=== PATIENT | male | born 1950 | race Caucasian/White ===

== ENCOUNTER 2017-11-08 10:16 | Emergency (ER) | payer MEDICARE ==
--- NOTE | 2017-11-08 10:33 | ER Document Report ---
ED Medical Screen (RME) - General Chief Complaint: Abdominal Distention Stated Complaint: ABDOMINAL SWELLING Notes: RAPID MEDICAL EVALUATION DISCLOSURE I have seen this patient as part of a Rapid Medical Evaluation and, if applicable, placed any initially appropriate orders. The patient will be seen and fully evaluated, including a full history and physical exam, by a provider ( in Main ED or Fast Track) when a room becomes available. 67-year-old male here with several weeks of progressively worsening abdominal distention and now twice the size of his normal abdominal girth. Over the past week he has also had some nausea and a solitary episode of vomiting. He has not had a bowel movement over the past few days but also states he takes Percocet so this may be the cause of not having a bowel movement frequently. He denies having any abdominal pain. He does have a history of umbilical hernia repair a year and a half ago however states that he is having a protuberance in the area of the repair. EXAM No abdominal TTP Mild to moderate abdominal distention Easily reducible periumbilical hernia without overlying skin changes TRAVEL OUTSIDE OF THE [place] IN LAST 30 DAYS: No - Related Data Allergies/Adverse Reactions: codeine [Codeine] Allergy (Verified 11/08/17 10:22) Sulfa (Sulfonamide Antibiotics) Allergy (Verified 11/08/17 10:22) Past Medical History - Social History Family history: CAD - Past Medical History Cardiac Medical History: Reports: Hx Hypercholesterolemia, Hx Hypertension Renal/ Medical History: Reports: Hx Kidney Stones GI Medical History: Reports: Hx Gastroesophageal Reflux Disease Musculoskeltal Medical History: Reports Hx Arthritis, Reports Hx Musculoskeletal Deformity Psychiatric Medical History: Reports: Hx Depression Past Surgical History: Reports: Hx Oral Surgery, Hx Orthopedic Surgery - foot - Immunizations Immunizations up to date: Yes Hx Diphtheria, Pertussis, Tetanus Vaccination: Yes Physical Exam - Vital signs Vitals: Temp Pulse Resp BP Pulse Ox 99.2 F 76 16 158/91 H 97 11/08/17 10:22 11/08/17 10:22 11/08/17 10:22 11/08/17 10:22 11/08/17 10:22 Course - Vital Signs Vital signs: Temp Pulse Resp BP Pulse Ox 99.2 F 76 16 158/91 H 97 11/08/17 10:22 11/08/17 10:22 11/08/17 10:22 11/08/17 10:22 11/08/17 10:22 Doctor's Discharge - Discharge Referrals: BRIAN LEMUS MD [Primary Care Provider] - Follow up as needed
[2017-11-08 11:06] LABS: ABSOLUTE BASOPHILS # (AUTO) 0.1 10^3/uL (0.0-0.2); ABSOLUTE EOSINOPHILS # (AUTO) 0.3 10^3/uL (0.0-0.6); ABSOLUTE LYMPHOCYTES (AUTO) 0.7 10^3/uL (0.5-4.7); ABSOLUTE MONOCYTES (AUTO) 0.4 10^3/uL (0.1-1.4); ABSOLUTE NEUT (AUTO) 5.6 10^3/uL (1.7-8.2); BASOPHILS % (AUTO) 1.5 % (0-2); EOSINOPHILS % (AUTO) 4.6 % (0-6); HEMATOCRIT 46.8 % (37.9-51.0); HEMOGLOBIN 15.9 g/dL (13.5-17.0); LYMPHOCYTES % (AUTO) 9.9 % (13-45); MEAN CORPUSCULAR HEMOGLOBIN 29.5 pg (27.0-33.4); MEAN CORPUSCULAR VOLUME 87 fl (80-97); MONOCYTES % (AUTO) 5.4 % (3-13); PLATELET COUNT 282 10^3/uL (150-450); RED BLOOD COUNT 5.39 10^6/uL (4.35-5.55); RED CELL DISTRIBUTION WIDTH 13.4 % (11.5-14.0); SEGMENTED NEUTROPHILS % (AUTO) 78.6 % (42-78); TOTAL CELLS COUNTED % (AUTO) 100 %; WHITE BLOOD COUNT 7.1 10^3/uL (4.0-10.5)
[2017-11-08 11:28] LABS: ALANINE AMINOTRANSFERASE 22 U/L (21-72); ALBUMIN 4.2 g/dL (3.5-5.0); ALKALINE PHOSPHATASE 83 U/L (38-126); ANION GAP 13 (5-19); ASPARTATE AMINO TRANSFERASE 17 U/L (17-59); BILIRUBIN,DIRECT 0.3 mg/dL (0.0-0.4); BILIRUBIN,TOTAL 0.5 mg/dL (0.2-1.3); BLOOD UREA NITROGEN 10 mg/dL (7-20); CALCIUM 9.6 mg/dL (8.4-10.2); CARBON DIOXIDE 27 mmol/L (22-30); CHLORIDE 104 mmol/L (98-107); GLUCOSE 114 mg/dL (75-110); LIPASE 161.8 U/L (23-300); SODIUM 143.5 mmol/L (137-145); TOTAL PROTEIN 7.3 g/dL (6.3-8.2)
--- NOTE | 2017-11-08 12:48 | RADIOLOGY REPORT (SQ) ---
EXAM DESCRIPTION: CT ABD/PELVIS WITH IV ONLY COMPLETED DATE/TIME: 11/08/2017 12:36 pm REASON FOR STUDY: abd distension, hx cancer, last BM 4d; SBO mets? COMPARISON: 02/20/2015 TECHNIQUE: CT scan of the abdomen and pelvis performed using helical scanning technique with dynamic intravenous contrast injection. No oral contrast. Images reviewed with lung, soft tissue, and bone windows. Reconstructed coronal and sagittal MPR images reviewed. Delayed images for evaluation of the urinary system also acquired. All images stored on PACS. All CT scanners at this facility use dose modulation, iterative reconstruction, and/or weight based d osing when appropriate to reduce radiation dose to as low as reasonably achievable (ALARA). [facility]: Dose Right [facility]: CareDose [facility]: Dose Right [facility]: Teradose 4D [facility]: [employer] CONTRAST TYPE AND DOSE: contrast/concentration: Isovue 370.00 mg/ml; Total Contrast Delivered: 93.0 ml; Total Saline Delivered: 71.0 ml RENAL FUNCTION: GFR > 60. RADIATION DOSE: CT Rad equipment meets quality standard of care and radiation dose reduction techniq ues were employed. CTDIvol: 13.1 - 18.0 mGy. DLP: 1542 mGy-cm.. LIMITATIONS: None. FINDINGS: LOWER CHEST: No significant findings. No nodules or infiltrates. LIVER: Normal size. No masses. No dilated ducts. SPLEEN: Normal size. No focal lesions. PANCREAS: No masses. No significant calcifications. No adjacent inflammation or peripancreatic fluid collections. Pancreatic duct not dilated. GALLBLADDER: No identified stones by CT criteria. No inflammatory changes to suggest cholecystitis. ADRENAL GLANDS: No significant masses or asymmetry. RIGHT KIDNEY AND URETER: Cyst. No significant calcifications. No hydronephrosis or hydroureter. LEFT KIDNEY AND URETER: Cysts. No significant calcifications. No hydronephrosis or hydroureter. AORTA AND VESSELS: No aneurysm. No dissection. Renal arteries, SMA, celiac without stenosis. RETROPERITONEUM: No retroperitoneal adenopathy, hemorrhage or masses. BOWEL AND PERITONEAL CAVITY: No masses or inflammatory changes. No free fluid or peritoneal masses. APPENDIX: Normal. PELVIS: No mass. No free fluid. Normal bladder. ABDOMINAL WALL: Ventral hernia. There is mildly dilated bowel within the hernia without bhavin obstru ction. BONES: No significant or acute findings. OTHER: No other significant finding. IMPRESSION: There is a ventral hernia containing mildly dilated bowel with mild partial obstruction. TECHNICAL DOCUMENTATION: JOB ID: [id number] Quality ID # [id number]: Final reports with documentation of one or more dose reduction techniques (e.g., Au tomated exposure control, adjustment of the mA and/or kV according to patient size, use of iterative reconstruction technique) 2010 [employer]- All Rights Reserved Reading location - IP/workstation name: [email or web address]
--- NOTE | 2017-11-08 13:06 | ER Document Report ---
ED GI/ - General Chief Complaint: Abdominal Distention Stated Complaint: ABDOMINAL SWELLING Time Seen by Provider: 11/08/17 12:51 Mode of Arrival: Ambulatory Information source: Patient Notes: Patient complains of abdominal distention and firmness to the upper part of his abdomen for the past 2 weeks. Patient states that he is also had mild headache for the past 2 weeks as well that resolves after taking Motrin or Tylenol over- the-counter. Patient does report some nausea. Patient states that since he has been here his abdomen has gone down and no longer feels firm. Fever, or change in appetite. Patient does report that he is recently had some constipation symptoms. Patient's last bowel movement was 3 days ago. His last bowel movement prior to that was a week prior. Patient states he typically has a bowel movement each day. Patient does take chronic narcotics. Patient was recently started on MiraLAX about 4 days ago. TRAVEL OUTSIDE OF THE [place] IN LAST 30 DAYS: No - HPI Patient complains to provider of: Other - Lucio distention, headache Onset: Other - 2 weeks Timing/Duration: Better Quality of pain: Achy Pain Level: 1 Associated symptoms: Constipation, Nausea. denies: Diarrhea, Fever, Urinary hesitancy, Urinary frequency, Urinary retention, Urinary urgency Exacerbated by: Denies Relieved by: Denies Similar symptoms previously: No Recently seen / treated by doctor: No - Related Data Allergies/Adverse Reactions: codeine [Codeine] Allergy (Verified 11/08/17 10:31) Sulfa (Sulfonamide Antibiotics) Allergy (Verified 11/08/17 10:31) Past Medical History - General Information source: Patient - Social History Smoking Status: Current Every Day Smoker Chew tobacco use (# tins/day): No Smoking Education Provided: Yes Frequency of alcohol use: None Drug Abuse: None Lives with: Spouse/Significant other Family History: Reviewed & Not Pertinent Patient has suicidal ideation: No Patient has homicidal ideation: No - Past Medical History Cardiac Medical History: Reports: Hx Hypercholesterolemia, Hx Hypertension Renal/ Medical History: Reports: Hx Kidney Stones. Denies: Hx Peritoneal Dialysis GI Medical History: Reports: Hx Gastroesophageal Reflux Disease Musculoskeletal Medical History: Reports Hx Arthritis, Reports Hx Musculoskeletal Deformity Psychiatric Medical History: Reports: Hx Depression Past Surgical History: Reports: Hx Oral Surgery, Hx Orthopedic Surgery - foot - Immunizations Immunizations up to date: Yes Hx Diphtheria, Pertussis, Tetanus Vaccination: Yes Review of Systems - Review of Systems Constitutional: No symptoms reported. denies: Fever, Recent illness EENT: No symptoms reported Cardiovascular: No symptoms reported. denies: Chest pain Respiratory: No symptoms reported. denies: Cough, Short of breath Gastrointestinal: Abdomen distended, Nausea, Constipation. denies: Abdominal pain, Vomiting, Poor appetite, Black stools Genitourinary: No symptoms reported. denies: Dysuria, Flank pain Male Genitourinary: No symptoms reported Musculoskeletal: No symptoms reported Skin: No symptoms reported Neurological/Psychological: Headaches. denies: Confusion, Weakness, Lost consciousness Physical Exam - Vital signs Vitals: Temp Pulse Resp BP Pulse Ox 99.2 F 76 16 158/91 H 97 11/08/17 10:22 11/08/17 10:22 11/08/17 10:22 11/08/17 10:22 11/08/17 10:22 - General General appearance: Appears well, Alert In distress: None - HEENT Head: Normocephalic, Atraumatic Eyes: Normal Conjunctiva: Normal Nasal: Normal Mouth/Lips: Normal Mucous membranes: Normal Neck: Normal, Supple. No: Lymphadenopathy - Respiratory Respiratory status: No respiratory distress Chest status: Nontender Breath sounds: Normal Chest palpation: Normal - Cardiovascular Rhythm: Regular Heart sounds: S1 appreciated, S2 appreciated Murmur: No - Abdominal Inspection: Obese Distension: No distension Bowel sounds: Hyperactive Tenderness: Nontender Organomegaly: Other - ventral hernia - Back Back: Normal, Nontender. No: CVA tenderness, Vertebra tenderness - Extremities General upper extremity: Normal inspection, Nontender, Normal strength General lower extremity: Normal inspection, Nontender, Normal strength - Neurological Neuro grossly intact: Yes Cognition: Normal Tiffani Coma Scale Eye Opening: Spontaneous Tiffani Coma Scale Verbal: Oriented Tiffani Coma Scale Motor: Obeys Commands Pope Coma Scale Total: 15 - Psychological Associated symptoms: Normal affect, Normal mood - Skin Skin Temperature: Warm Skin Moisture: Dry Skin Color: Normal Course - Re-evaluation Re-evalutation: 11/08/17 13:[address] Denney who agrees to evaluate patient concerns about possible bowel obstruction 11/08/17 13:57 Dr. Denney evaluated patient. Does not feel that patient is an acute surgical patient at this time. Recommend outpatient follow-up in his office to have an electively scheduled hernia repair. 11/08/17 15:27 Patient refuses to stay for enema. Patient states that he can do that at home. Patient is requesting to leave at this time. - Vital Signs Vital signs: Temp Pulse Resp BP Pulse Ox 99.2 F 76 16 151/91 H 94 11/08/17 10:22 11/08/17 10:22 11/08/17 15:19 11/08/17 15:20 11/08/17 15:20 - Laboratory Result Diagrams: 11/08/17 10:50 11/08/17 10:50 Laboratory results interpreted by me: 11/08/17 11/08/17 10:50 10:50 Seg Neutrophils % 78.6 H Lymphocytes % 9.9 L Glucose 114 H 11/08/17 14:23 Labs- Entire Visit 11/08/17 11/08/17 10:50 10:50 WBC 7.1 RBC 5.39 Hgb 15.9 Hct 46.8 MCV 87 MCH 29.5 MCHC 34.0 RDW 13.4 Plt Count 282 Seg Neutrophils % 78.6 H Lymphocytes % 9.9 L Monocytes % 5.4 Eosinophils % 4.6 Basophils % 1.5 Absolute Neutrophils 5.6 Absolute Lymphocytes 0.7 Absolute Monocytes 0.4 Absolute Eosinophils 0.3 Absolute Basophils 0.1 Sodium 143.5 Potassium 4.0 Chloride 104 Carbon Dioxide 27 Anion Gap 13 BUN 10 Creatinine 0.96 Est GFR ( Amer) > 60 Est GFR (Non-Af Amer) > 60 Glucose 114 H Calcium 9.6 Total Bilirubin 0.5 Direct Bilirubin 0.3 Neonat Total Bilirubin Not Reportable Neonat Direct Bilirubin Not Reportable Neonat Indirect Bili Not Reportable AST 17 ALT 22 Alkaline Phosphatase 83 Total Protein 7.3 Albumin 4.2 Lipase 161.8 - Diagnostic Test Radiology reviewed: Image reviewed, Reports reviewed Discharge - Discharge Clinical Impression: Constipation Qualifiers: Constipation type: unspecified constipation type Qualified Code(s): K59.00 - Constipation, unspecified Ventral hernia Qualifiers: Obstruction and gangrene presence: without obstruction or gangrene Qualified Code(s): K43.9 - Ventral hernia without obstruction or gangrene Headache Qualifiers: Headache type: unspecified Headache chronicity pattern: unspecified pattern Intractability: not intractable Qualified Code(s): R51 - Headache Condition: Stable Disposition: HOME, SELF-CARE Instructions: Acetaminophen, Constipation ([facility]), Headache ([facility]), Hernia ([facility]) Additional Instructions: Return immediately for any new or worsening symptoms Followup with your primary care provider, call tomorrow to make a followup appointment Follow-up with Dr. Denney for repair of your hernia Forms: Smoking Cessation Education Referrals: BRIAN LEMUS MD [NO LOCAL MD] - Follow up as needed ADDIS DENNEY MD [ACTIVE STAFF] - Follow up in 1 week
[2017-11-08] MEDS ORDERED: ACETAMINOPHEN 325 MG TABLET PO ONE (13:57)
[2017-11-08] MEDS ORDERED: MAGNESIUM CITRATE 296 ML BOTTLE PO ONE (14:34)
--- NOTE | 2017-11-08 15:07 | PDOC CONSULTATION ---
Consultation Consult Date: 11/08/17 Attending physician:: DEVORAH MONTEIRO Consult reason:: Rule out small bowel obstruction History of Present Illness Patient complains of: Abdominal pain History of Present Illness: CAMELIA RICHARDS is a 67 year old male Presents emergency department via ground rescue complaining of abdominal pain, decreased bowel movement frequency, nausea. Patient has a history of chronic constipation, takes narcotics for chronic back pain. He has a known umbilical hernia, previously repaired. The patient was evaluated in the emergency department where he had a CT scan of the abdomen and pelvis with IV but no oral contrast. Findings are significant for loops of small bowel in the umbilical hernia, and dilated small bowel suspicious for partial small bowel obstruction. Surgery is consulted. While in the emergency department the patient felt better. Past Medical History Cardiac Medical History: Reports: Hyperlipidema, Hypertension GI Medical History: Reports: Gastroesophageal Reflux Disease Musculoskeltal Medical History: Reports: Arthritis Psychiatric Medical History: Reports: Depression Past Surgical History Past Surgical History: History radical robotic prostatectomy [facility] 2016 with partial closure of umbilical hernia defect. Past Surgical History: Reports: Orthopedic Surgery - foot Social History Smoking Status: Current Every Day Smoker Hx Recreational Drug Use: No Hx Prescription Drug Abuse: No Family History Family History: None, Reviewed & Not Pertinent Parental Family History Reviewed: Yes Children Family History Reviewed: Yes Sibling(s) Family History Reviewed.: Yes Medication/Allergy Home Medications: Amlodipine Besylate/Benazepril [Amlodipine-Benazepril 10-20 mg] 1 cap PO DAILY 08/30/12 Atorvastatin Calcium [Lipitor 20 Mg Tablet] 20 mg PO QHS 08/30/12 Citalopram Hydrobromide [Celexa 10 mg Tablet] mg PO 08/30/12 Fexofenadine HCl [Elodia] 30 mg PO 08/30/12 Ciprofloxacin HCl [Cipro 500 mg Tablet] 500 mg PO BID #14 tablet 08/31/12 Ibuprofen 800 mg PO Q8HP PRN #30 tablet 10/12/13 Oxycodone HCl/Acetaminophen [Percocet 5-325 mg Tablet] 1 - 2 tab PO ASDIR PRN # 15 tablet 10/12/13 Oxycodone HCl/Acetaminophen [Percocet 5-325 mg Tablet] 1 - 2 tab PO Q4H PRN #25 tablet 02/20/15 Allergies/Adverse Reactions: codeine [Codeine] Allergy (Verified 11/08/17 10:31) Sulfa (Sulfonamide Antibiotics) Allergy (Verified 11/08/17 10:31) Review of Systems Constitutional: ABSENT: chills, fever(s), headache(s), weight gain, weight loss Eyes: ABSENT: visual disturbances Ears: ABSENT: hearing changes Cardiovascular: ABSENT: chest pain, dyspnea on exertion, edema, orthropnea, palpitations Psychiatric: ABSENT: anxiety, depression, homidical ideation, suicidal ideation Physical Exam Vital Signs: Temp Pulse Resp BP Pulse Ox 99.2 F 76 16 158/91 H 97 11/08/17 10:22 11/08/17 10:22 11/08/17 10:22 11/08/17 10:22 11/08/17 10:22 Intake & Output 11/07/17 11/08/17 11/09/17 06:59 06:59 06:59 Weight 85.8 kg General appearance: PRESENT: no acute distress Head exam: PRESENT: normocephalic Mouth exam: PRESENT: dry mucosa Neck exam: PRESENT: full ROM Respiratory exam: PRESENT: rhonchi, other - Rhonchi bilaterally GI/Abdominal exam: PRESENT: other - Umbilical hernia appreciated; scars above the umbilicus consistent previous surgery. Is approximately 3-4 cm fascial defect. The hernia is reducible. The remainder the abdomen is soft not Rectal exam: PRESENT: deferred Extremities exam: PRESENT: full ROM, +1 edema, other Results Laboratory Results: 11/08/17 10:50 11/08/17 10:50 11/08/17 11/08/17 10:50 10:50 WBC 7.1 RBC 5.39 Hgb 15.9 Hct 46.8 MCV 87 MCH 29.5 MCHC 34.0 RDW 13.4 Plt Count 282 Seg Neutrophils % 78.6 H Lymphocytes % 9.9 L Monocytes % 5.4 Eosinophils % 4.6 Basophils % 1.5 Absolute Neutrophils 5.6 Absolute Lymphocytes 0.7 Absolute Monocytes 0.4 Absolute Eosinophils 0.3 Absolute Basophils 0.1 Sodium 143.5 Potassium 4.0 Chloride 104 Carbon Dioxide 27 Anion Gap 13 BUN 10 Creatinine 0.96 Est GFR ( Amer) > 60 Est GFR (Non-Af Amer) > 60 Glucose 114 H Calcium 9.6 Total Bilirubin 0.5 AST 17 ALT 22 Alkaline Phosphatase 83 Total Protein 7.3 Albumin 4.2 Lipase 161.8 Impressions: Abdomen/Pelvis CT 11/08/17 10:29 IMPRESSION: There is a ventral hernia containing mildly dilated bowel with mild partial obstruction. Assessment & Plan - Diagnosis (1) Ventral hernia Qualifiers: Obstruction and gangrene presence: without obstruction or gangrene Qualified Code(s): K43.9 - Ventral hernia without obstruction or gangrene Is this a current diagnosis for this admission?: Yes (2) Constipation Qualifiers: Constipation type: unspecified constipation type Qualified Code(s): K59.00 - Constipation, unspecified Is this a current diagnosis for this admission?: Yes (3) Smoker Is this a current diagnosis for this admission?: Yes Plan: Clinical impression: Abdominal pain likely due to relative dehydration, and chronic constipation; seriously doubt chronic ventral wall hernia responsible for patient's symptoms; CT scan limited due to absence of oral contrast. However, by my interpretation, no pathologic findings. Recommendations 1. No indication for surgical intervention; instructed patient on the importance of avoiding constipation, straining, and inspection of the umbilical hernia to ensure reduction on a regular basis. 2. Suggested hydration, cathartics to get bowels working; suggested he get on a regular bowel program. 3. I gave the patient a copy of my card told to contact me for an appointment to discuss operative repair of umbilical hernia on a scheduled basis. - Time Time Spent: 30 to 50 Minutes Smoking Cessation Education: 3 to 10 minutes Medications reviewed and adjusted accordingly: Yes Anticipated discharge: Home
[2017-11-08 15:29] VITALS: BP 151/91
== END 2017-11-08 15:32 | disposition home or self-care (01) ==
LOC: ER 10:16
DX: K59.00 Constipation, unspecified (principal); K43.9 Ventral hernia without obstruction or gangrene; R51 Headache; R11.0 Nausea; F17.200 Nicotine dependence, unspecified, uncomplicated; I10 Essential (primary) hypertension; E78.00 Pure hypercholesterolemia, unspecified; F32.9 Major depressive disorder, single episode, unspecified; M54.9 Dorsalgia, unspecified; G89.29 Other chronic pain; Z79.891 Long term (current) use of opiate analgesic; Z88.5 Allergy status to narcotic agent; Z88.2 Allergy status to sulfonamides; Z79.899 Other long term (current) drug therapy
CPT/HCPCS: 99284; 36415; 83690; 85025; 80053; 74177; J3490

== ENCOUNTER 2017-12-03 09:10 | Day surgery (SDC) | payer MEDICARE, OTHER ==
[2017-12-01 09:42] LABS: HEMATOCRIT 44.4 % (37.9-51.0); HEMOGLOBIN 14.9 g/dL (13.5-17.0); MEAN CORPUSCULAR HEMOGLOBIN 29.1 pg (27.0-33.4); MEAN CORPUSCULAR HGB CONC 33.5 g/dL (32.0-36.0); MEAN CORPUSCULAR VOLUME 87 fl (80-97); PLATELET COUNT 276 10^3/uL (150-450); RED BLOOD COUNT 5.12 10^6/uL (4.35-5.55); RED CELL DISTRIBUTION WIDTH 13.5 % (11.5-14.0); WHITE BLOOD COUNT 6.5 10^3/uL (4.0-10.5)
--- NOTE | 2017-12-01 13:18 | EKG REPORT ---
SEVERITY:- ABNORMAL ECG - SINUS RHYTHM LAD, CONSIDER LEFT ANTERIOR FASCICULAR BLOCK BORDERLINE T ABNORMALITIES, ANT-LAT LEADS : Confirmed by: Ngozi Washington MD 01-Dec-2017 13:17:57
[~2017-12-03 09:10] MED LIST: ACETAMINOPHEN 325 MG TABLET PO PRN; BUPIVACAINE HCL 0.25 % INJ/PF (2.5 MG/1 ML) 30 ML VIAL ONE; CEFAZOLIN 1 GM/D5W RTU 1 GM/50 ML RTUPB IV PRN; RINGERS SOLUTION,LACTATED 1,000 ML IV PRN
[2017-12-03] MEDS ORDERED: HYDROMORPHONE HCL INJ/PF 2 MG/ML AMPULE ONE (11:36)
[2017-12-03] MEDS ORDERED: PROPOFOL INJ 200 MG/20 ML VIAL IV ONE (11:36)
[2017-12-03] MEDS ORDERED: ACETAMINOPHEN 1,000 MG/100 ML RTUPB IV ONE (11:36)
[2017-12-03] MEDS ORDERED: FENTANYL CITRATE INJ/PF 100 MCG/2 ML AMPUL ONE (11:36)
[2017-12-03] MEDS ORDERED: ONDANSETRON HCL INJ/PF 4 MG/2 ML SDV ONE (11:36)
[2017-12-03] MEDS ORDERED: MIDAZOLAM 2 MG/2 ML INJ ONE (11:36)
[2017-12-03] MEDS ORDERED: MORPHINE SULFATE 10 MG/ML INJ IV PRN (12:47)
[2017-12-03] MEDS ORDERED: ONDANSETRON HCL INJ/PF 4 MG/2 ML SDV IV PRN (12:47)
[2017-12-03] MEDS ORDERED: FENTANYL CITRATE INJ/PF 100 MCG/2 ML AMPUL IV PRN ×3 (12:47)
[2017-12-03] MEDS ORDERED: PROMETHAZINE HCL INJ 25 MG/1 ML VIAL IV PRN (12:47)
[2017-12-03] MEDS ORDERED: MEPERIDINE HCL/PF INJ 25 MG/1 ML DISP.SYRIN IV PRN (12:47)
[2017-12-03] MEDS ORDERED: DIPHENHYDRAMINE HCL 50 MG/ML VIAL IV PRN (12:47)
[2017-12-03] MEDS ORDERED: OXYCODONE-ACETAMINOPHEN 5-325 MG TABLET PO PRN (13:13)
--- NOTE | 2017-12-03 13:13 | Discharge Summary ---
Discharge Summary (SDC) - Discharge Final Diagnosis: umbilical hernia Date of Surgery: 12/03/17 Discharge Date: 12/03/17 Condition: Stable Treatment or Instructions: [facility] [address] [place] [id number] Discharge Instructions: Laparoscopic Surgery 1. General Information: a. DO NOT DRIVE a car or operate dangerous machinery for 3-4 days. b. DO NOT consume alcohol, tranquilizers, sleeping medications or any non- prescribed medications for 24 hours unless approved by your doctor or as long as taking narcotic prescription medications. c. DO NOT make important decisions or sign any important papers for the first 24 hours after surgery. d. When discharged home the same day of surgery have a responsible person with you for the first night. 2. Activity Restrictions: 8 weeks. a. NO heavy lifting, straining abdominal muscles, bending over a lot, yard work, house work, or sports for [address] for 3-4 days. c. It is fine to go for walks, up and down steps, ride in a car. d. Elevate your head when sleeping/resting. 3. Treatment: a. You may shower 24 hours after surgery, no baths or swimming for 2 weeks. Remove band-aids or dressings before shower but leave paper strips (steri-strips ) on the skin to fall off on their own. If still on at postoperative visit they will be removed then. b. Drainage of fluid or blood is not unusual from an incision. If occurs, you can clean with peroxide and cotton ball daily and cover with dry gauze until the wound seals. c. If a lot of bleeding occurs, you can hold pressure with a gauze or cloth over the site for 10 minutes and it will usually stop. If bleeding continues you will need to call for possible evaluation in office or emergency room. 4. Medications: a. _Toradol__ may be taken for pain as needed, one tablet every 6 hours. b. You should resume all normal medications unless a change is specified by your doctors. 5. Diet: Normal diet 6. The following may occur after laparoscopic surgery: a. Shoulder or upper back ache from retained gas that should resolve in 1-2 days b. Soreness and bruising at incision sites will resolve with time. c. Scrotal swelling (labia in women) and bruising is often seen after hernia surgery. d. Sore throat e. Fatigue may last days to weeks. f. Difficulty urinating may occur and may need to come into emergency room for urinary catheter placement. 7. Notify Physician If: a. Worsening or pain not improved with pain medication b. Persistent nausea and vomiting c. Fever above 101 d. Persistent bleeding or swelling at operative site e. Unable to urinate and uncomfortable bladder 6-8 hours after surgery 8..Follow Up Care: a. Schedule a follow up appointment with your doctor for 2 weeks. In the event of any postoperative problems or questions or you may call the office during business hours or the On-Call physician evenings and weekends at [facility]. [facility] I understand the instructions for my postoperative care as described above and a copy has been given to me. Patient/Significant Other Witness Date Prescriptions: Ketorolac Tromethamine [Toradol 10 mg Tablet] 10 mg PO Q6HP PRN #20 tablet PRN Reason: Referrals: BRIAN LEMUS MD [Primary Care Provider] - Discharge Diet: As Tolerated Discharge Activity: No Lifting Over 10 Pounds, No Lifting/Push/Pulling, Walk Frequently Report the Following to Your Physician Immediately: Nausea, Vomiting, Increase in Pain, Fever over 101 Degrees, Unusual Bleeding, Redness, Swelling, Drainage- Foul Smelling
--- NOTE | 2017-12-03 13:16 | Operative Report ---
Operative Report DATE OF SURGERY: 12/03/17 PREOPERATIVE DIAGNOSIS: Abdominal wall ventral wall hernia POSTOPERATIVE DIAGNOSIS: same OPERATION: Laparoscopic ventral wall hernia repair SURGEON: ADDIS PETERSON [employer]IC: STEF SHARPE ANESTHESIA: GA TISSUE REMOVED OR ALTERED: none COMPLICATIONS: none ESTIMATED BLOOD LOSS: scant INTRAOPERATIVE FINDINGS: see below PROCEDURE: Patient was taken to the main operating room where general anesthesia was induced. The abdomen was exposed, arms abducted, the abdomen prepped draped sterile fashion Surgical plan and surgical timeout was conducted. Instrumentation was set up for laparoscopic surgery. Skin was Vane Dr. Merrick jensen Marcaine in the left upper quadrant, left lower quadrant and right mid taylor. A left upper quadrant stab was made with a knife Veress needle inserted the peritoneal cavity and pneumoperitoneum was established. Veress needle was removed, a 5 mm port was inserted, and a 5 mm viewing scope was inserted. Under direct visualization 2 additional 5 mm ports were placed one in left lower quadrant, one in the right mid field. There was no evidence of visceral or vascular injury. Findings were significant for a umbilical hernia at the umbilicus, with a vertically oriented to septum. The diameter of the fascial defect was approximately 4 cm. Photos were taken. We elected now to proceed with primary closure of the fascial defect with 2 [id number] #1 PDS sutures. These were placed through the umbilical skin after making a small yovany with the 11 blade. The fascia came together most satisfactorily in a transverse lie, with successful securing of knots. Knots were closed with the abdominal tension decompressed. We now brought onto the field a non- 11 mm diameter Bard composite, medium weight mesh, secured it at the 12, 3, 6, 9:00 positions with 0 PDS suture. The mesh was then moistened, brought in the intra-abdominal wall for 1 of the 5 mm port sites, and then secured to the anterior abdominal wall using the disposable suture passer under direct visualization. We now secured the mesh in a circumferential fashion with 2 rows of secure tack chilo. There was some bleeding likely from penetration of the inferior epigastric artery on the patient's right side with development of minimal hematoma. Bleeding abated without further incident. Conclusion photos were taken. The patient on procedure well. We are very satisfied with the abdominal wall repair. All ports removed under direct visualization, pneumoperitoneum is closed with 3- 0 Vicryl suture. Patient procedure well, extubated, taken to recovery in stable condition. The physician assistant general manager, Ms. Lezama, provided assistance during this case by: Assisting and port insertion, retracting tissue, instillation of local anesthesia and closure of skin incisions.
[2017-12-03] MEDS: FENTANYL CITRATE INJ/PF 100 MCG/2 ML AMPUL ONE ×2 (13:30→13:53)
[2017-12-03] MEDS ORDERED: PHENYLEPHRINE HCL INJ/PF 10 MG/1 ML SDV ONE (15:22)
[2017-12-03] MEDS ORDERED: SUCCINYLCHOLINE CHLORIDE INJ 200 MG/10 ML VIAL ONE (15:22)
[2017-12-03 15:35] VITALS: BP 112/76
== END 2017-12-03 15:55 | disposition home or self-care (01) ==
LOC: OROUT 09:10
PROVIDERS: ATTEND Surgery
DX: K43.9 Ventral hernia without obstruction or gangrene (principal); F43.29 Adjustment disorder with other symptoms; I10 Essential (primary) hypertension; E78.00 Pure hypercholesterolemia, unspecified; G89.29 Other chronic pain; R01.1 Cardiac murmur, unspecified; Z79.891 Long term (current) use of opiate analgesic; Z79.899 Other long term (current) drug therapy; Z88.5 Allergy status to narcotic agent; Z88.2 Allergy status to sulfonamides; Z85.46 Personal history of malignant neoplasm of prostate
CPT/HCPCS: 49652; 93005; 36415; 85027; 93010; C1713; C1781; J2250; J0690; J3010; A9270; J1170; J2370; J0330; J2405; J2704; J0131; 752

== ENCOUNTER 2017-12-07 12:37 | Emergency (ER) | payer MEDICARE, OTHER ==
[2017-12-07 12:53] VITALS: BP 148/87
== END 2017-12-07 14:00 | disposition left against medical advice (07) ==
LOC: ER 12:37
DX: Z53.21 Procedure and treatment not carried out due to patient leaving prior to being seen by health care provider (principal); R10.9 Unspecified abdominal pain